=== PATIENT | male | born 1930 | race Caucasian/White ===

== ENCOUNTER → 2018-04-07 | Outpatient (CLI) | payer MEDICARE ==
--- NOTE | 2018-04-07 14:08 | PCVCIMAG ---
APPROVED REPORT Study performed: 04/07/2018 12:56:30 EXAM: Comprehensive 2D, Doppler, and color-flow Echocardiogram Patient Location: Echo lab Status: routine BSA: 2.00 HR: 89 bpmBP: 118/70 mmHg Rhythm: NSR Other Information Study Quality: Adequate Risk Factors: Cardiac Risk Factors: HTN, Hyperlipidemia, COPD Indications Atrial Fibrillation Dyspnea Hypertension/HDD HKyperlipidemia 2D Dimensions LVEF(%): 40.46 (>50%) IVSd: 12.61 (7-11mm)LVOT Diam: 22.68 (18-24mm) LVDd: 46.86 mm PWd: 7.57 (7-11mm)Ascending Ao: 35.17 (22-36mm) LVDs: 37.63 (25-40mm) Left Atrium: 32.07 (27-40mm) Aortic Root: 31.04 mm LV Single Plane 4CH: 60.30 % Santiago's LVEF: 40.46 % Volumes Left Atrial Volume (Systole) Single Plane 4CH: 28.85 mLSingle Plane 2CH: 28.45 mL LA ESV Index: 16.00 mL/m2 Aortic Valve AoV Peak Chaparro.: 1.39 m/s AO Peak Gr.: 7.78 mmHgLVOT Max P.45 mmHg LVOT Max V: 0.78 m/s OCTAVIANO Vmax: 2.27 cm2 Mitral Valve E/A Ratio: 0.5 MV Decel. Time: 199.30 ms MV E Max Chaparro.: 0.54 m/s MV A Chaparro.: 1.01 m/s MV PHT: 57.80 ms IVRT: 86.51 ms TDI E/Lateral E': 10.80E/Medial E': 7.71 Medial E' Chaparro.: 0.07 m/s Lateral E' Chaparro.: 0.05 m/s Pulmonary Valve PV Peak Gr.: 2.15 mmHg Pulmonary Vein P Vein S: 0.31 m/sP Vein A: 0.37 m/s P Vein D: 0.27 m/sP Vein A Dur.: 86.5 msec P Vein S/D Ratio: 1.15 Left Ventricle The left ventricle is normal size. There is normal LV segmental wall motion. There is normal left ventricular wall thickness. Left ventricular systolic function is normal. The left ventricular ejection fraction is within the normal range. LVEF is 55-60%. The left ventricular diastolic function is normal. Right Ventricle The right ventricle is normal size. The right ventricular systolic function is normal. Atria The left atrium size is normal. The right atrium size is normal. Aortic Valve Aortic valve leaflets are mildly thickened. No aortic regurgitation is present. There is no aortic valvular stenosis. Mitral Valve Mild mitral annular calcification. There is no mitral valve regurgitation noted. No evidence of mitral valve stenosis. Tricuspid Valve The tricuspid valve is normal in structure. There is no tricuspid valve regurgitation noted. Pulmonic Valve The pulmonary valve is normal in structure. There is no pulmonic valvular regurgitation. Great Vessels The aortic root is normal in size. IVC is normal in size and collapses with >50% inspiration Pericardium There is no pericardial effusion. <Conclusion> The left ventricle is normal size. LVEF is 55-60%. The left ventricular diastolic function is normal. The right ventricle is normal size. The left atrium size is normal. Aortic valve leaflets are mildly thickened. There is no aortic valvular stenosis. There is no mitral valve regurgitation noted. There is no tricuspid valve regurgitation noted. The aortic root is normal in size. There is no pericardial effusion.
== END | disposition home or self-care (01) ==
LOC: PCVCIMAG 13:00
PROVIDERS: ATTEND Family Medicine
DX: I48.91 Unspecified atrial fibrillation (principal); R06.09 Other forms of dyspnea; I10 Essential (primary) hypertension
CPT/HCPCS: 93306

== ENCOUNTER → 2018-04-15 | Outpatient (CLI) | payer MEDICARE | END | disposition home or self-care (01) | LOC: PCVCCLINIC 11:32 | PROVIDERS: ATTEND Internal Medicine | DX: I48.2 Chronic atrial fibrillation (principal); M35.3 Polymyalgia rheumatica; J43.9 Emphysema, unspecified; Z86.718 Personal history of other venous thrombosis and embolism; Z87.891 Personal history of nicotine dependence | CPT/HCPCS: 93005; G0463 ==